=== PATIENT | female | born 1970 | race Caucasian/White ===

== ENCOUNTER 2019-11-28 10:13 | Emergency (ER) | payer OTHER ==
[~2019-11-28] VITALS: Ht 170.2 cm; Wt 170.6 kg
--- NOTE | 2019-11-28 10:35 | NUR ---
"Was exposed to a friend 1wk ago Recently found out COVID positive" Patient a/ox4, breathing even and unlabored, c/o mild sob, on room air with 94% spo2. Needs attended. Attached to the playground monitor.
--- NOTE | 2019-11-28 11:00 | NUR ---
covid swab sent.
--- NOTE | 2019-11-28 11:20 | NUR ---
PT IN BED AWAKE. NOT IN ANY DISTRESS. BREATHING EVEN AND UNLABORED.
[2019-11-28 11:30] LABS: BASOPHILS # (AUTO) 0.1 /CMM (0.0-0.2); BASOPHILS % (AUTO) 0.8 % (0.0-2.0); EOSINOPHILS % (AUTO) 0.8 % (0.0-6.0); HEMATOCRIT 33 % (33-45); HEMOGLOBIN 9.1 g/dL (11.5-14.8); LYMPHOCYTES # (AUTO) 1.5 /CMM (0.8-4.8); LYMPHOCYTES % (AUTO) 9.7 % (20.0-44.0); MEAN CORPUSCULAR HGB CONC 28 g/dl (31.0-36.0); MEAN CORPUSCULAR VOLUME 56 fL (82-100); MONOCYTES % (AUTO) 6.3 % (2.0-12.0); NEUTROPHILS # (AUTO) 13.2 /CMM (1.8-8.9); NEUTROPHILS % (AUTO) 82.4 % (43.0-81.0); PLATELET COUNT (AUTO) 432 /CMM (150-450); RED BLOOD CELL COUNT(AUTO) 5.88 MIL/uL (4.0-5.2)
[2019-11-28 11:34] LABS: CALCIUM, SERUM 9.5 mg/dL (8.5-10.1); CARBON DIOXIDE 22 mmol/L (21-32); CHLORIDE 98 mmol/L (98-107); GLUCOSE 342 mg/dL (74-106); POTASSIUM 3.5 mmol/L (3.5-5.1); SODIUM SERUM 136 mmol/L (136-145); UREA NITROGEN, BLOOD 7 mg/dL (7-18)
[2019-11-28 11:47] LABS: ALANINE AMINOTRANSFERASE 33 U/L (12-78); ALBUMIN 3.2 g/dL (3.4-5.0); ALKALINE PHOSPHATASE 79 U/L (46-116); ASPARTATE AMINOTRANSFERASE 14 U/L (15-37); B-TYPE NATRIURETIC PEPTIDE 1134 PG/ML (0-125); BILIRUBIN,DIRECT 0.3 mg/dL (0.0-0.2); BILIRUBIN,TOTAL 0.9 mg/dL (0.2-1.0); TOTAL PROTEIN, SERUM 7.7 g/dL (6.4-8.2)
--- NOTE | 2019-11-28 12:14 | NUR ---
COVID RESULT NEGATIVE
--- NOTE | 2019-11-28 12:47 | NUR ---
COVID PCR SWAB DONE AND SENT TO LAB.
--- NOTE | 2019-11-28 12:47 | NUR ---
Patient discharged to home in stable condition. Written and verbal after care instructions given. Patient verbalizes understanding of instruction. RX and medication pt teaching provided, returned verbalization of understanding. Pt ambulatory with a steady gait
[2019-11-28 12:49] VITALS: BP 154/79
== END 2019-11-28 12:54 | disposition home or self-care (01) ==
LOC: ER 10:21
DX: R06.02 Shortness of breath (principal); Z20.828 Contact with and (suspected) exposure to other viral communicable diseases; D72.829 Elevated white blood cell count, unspecified; I51.7 Cardiomegaly; E66.9 Obesity, unspecified; F17.200 Nicotine dependence, unspecified, uncomplicated; Z68.43 Body mass index [BMI] 50.0-59.9, adult
CPT/HCPCS: 36415; 71045; 80048; 80076; 83880; 84484; 85025; 87426; 99284; C9803 ×2; U0003

== ENCOUNTER 2019-12-26 09:34 | Emergency (ER) | payer OTHER ==
[~2019-12-26] VITALS: Ht 165.1 cm; Wt 86.2 kg
[2019-12-26 09:41] VITALS: BP 110/80
--- NOTE | 2019-12-26 09:52 | NUR ---
SEEN AND EXAMINED BY .
--- NOTE | 2019-12-26 10:09 | NUR ---
MACHINE WIPER AT BEDSIDE FOR XRAY.
--- NOTE | 2019-12-26 10:41 | NUR ---
Patient discharged to home in stable condition. Written and verbal after care instructions given. Patient verbalizes understanding of instruction.
== END 2019-12-26 10:42 | disposition home or self-care (01) ==
LOC: ER 09:36
DX: R06.02 Shortness of breath (principal); R05 Cough; Z60.2 Problems related to living alone
CPT/HCPCS: 71045-TC